=== PATIENT | female | born 1975 | race Caucasian/White ===

== ENCOUNTER 2018-12-08 11:58 | Inpatient (IN) | payer OTHER ==
[2018-12-07 08:31] VITALS: BMI 27.6
--- NOTE | 2018-12-08 09:14 | HP ---
History & Physical Update - History History: No Change (h&p reviwed , no changes for supracervical abdominal hysterectomy. bilateral salpingectomy) - Physical Physical: No Change - Assessment Assessment: No Change - Plan Plan: No Change
[2018-12-08 12:51] LABS: INR 1.04 (0.83-1.09); PROTHROMBIN TIME (PATIENT) 12.3 SEC (9.7-13.0)
[2018-12-08 12:54] LABS: ACTIVATED PTT 30.4 SECONDS (25.2-36.5)
[2018-12-08] MEDS ORDERED: ceFAZolin 2 GRAM PREMIX BAG IVPB ONE (13:00)
[2018-12-08] MEDS ORDERED: CEFAZOLIN 1 GM/D5W 2 GM/100 ML BAG ONE (13:03)
[2018-12-08] MEDS ORDERED: ceFAZolin SODIUM 1 GM VIAL ONE (13:04)
[2018-12-08] MEDS ORDERED: ROCURONIUM BROMIDE 50 MG/5 ML VIAL ONE (14:30)
[2018-12-08] MEDS ORDERED: PROPOFOL 20 ML ONE ×2 (14:30)
[2018-12-08] MEDS ORDERED: MIDAZOLAM HCL 2 MG/2 ML SINGLE DOSE VIAL ONE (14:30)
[2018-12-08] MEDS ORDERED: ceFAZolin SODIUM 1 GM VIAL IVPB ONE (14:52)
[2018-12-08] MEDS ORDERED: NEOSTIGMINE METHYLSULFATE 0.5 MG/ML - 10 ML MDV ONE (16:11)
[2018-12-08] MEDS ORDERED: GLYCOPYRROLATE 0.2 MG/1 ML VIAL ONE (16:11)
[2018-12-08] MEDS ORDERED: DEXAMETHASONE SOD PHOSPHATE 4 MG/1 ML VIAL IVPUSH PRN (16:20)
[2018-12-08] MEDS ORDERED: ONDANSETRON 4 MG/2 ML VIAL IVPUSH PRN ×2 (16:20→16:25)
[2018-12-08] MEDS ORDERED: PROMETHAZINE HCL 25 MG/1 ML VIAL IVPB PRN (16:20)
[2018-12-08] MEDS ORDERED: IBUPROFEN 800 MG/8 ML IJ IVPB PRN (16:25)
[2018-12-08] MEDS ORDERED: IBUPROFEN 600 MG TABLET (FP) PO PRN (16:25)
[2018-12-08] MEDS ORDERED: oxyCODONE HCL 5 MG TABLET PO PRN (16:25)
[2018-12-08] MEDS ORDERED: ACETAMINOPHEN 325 MG TABLET (FP) PO PRN (16:27)
[2018-12-08] MEDS ORDERED: HYDROmorphone *PCA* 10MG/50ML DISP.SYRIN PCA SCH (16:30)
[2018-12-08] MEDS ORDERED: HYDROmorphone *PCA* 10MG/50ML DISP.SYRIN PCA ONE (16:36)
[2018-12-08] MEDS ORDERED: PROMETHAZINE HCL 25 MG/1 ML VIAL ONE (16:50)
[2018-12-08] MEDS: ELECTROLYTE-148 SOLN 1,000 ML IV SCH (18:30)
[2018-12-09] MEDS: METOCLOPRAMIDE HCL INJECTION 10 MG/2 ML VIAL IVPB SCH ×3 (00:45→18:40)
[2018-12-09] MEDS: ELECTROLYTE-148 SOLN 1,000 ML IV SCH ×2 (04:00→18:39)
--- NOTE | 2018-12-09 07:29 | OP ---
DATE OF OPERATION: 12/08/2018 PREOPERATIVE DIAGNOSIS: Menometrorrhagia, pelvic pain, adenomyosis, not responding to hormonal therapy. POSTOPERATIVE DIAGNOSIS: Menometrorrhagia, pelvic pain, adenomyosis, not responding to hormonal therapy. PROCEDURE: Suprapubic abdominal hysteroscopy, bilateral salpingectomy. SURGEON: Emi Prince MD HOPPER FILLER: Richard Lopez MD ANESTHESIA: General, Dr. Serna. ESTIMATED BLOOD LOSS: 150 mL. DESCRIPTION OF PROCEDURE: The patient was taken to the operating room. Under adequate general anesthesia in dorsal supine position, abdomen and perineum was prepped and draped. Bowen catheter was inserted. Abdomen was prepped and cleaned then an incision was made over the previous section scar. A Pfannenstiel abdominal skin incision was made. Abdominal wall was cut layer by layer until peritoneum was exposed and incised. Upon entering the abdominal cavity, upper abdomen was checked. Bowels were packed away then uterus was delivered to the surface. Bladder was adherent to the lower uterine area, and over the cervix first the anterior leaf of broad ligament was opened. Bladder was pushed down. The round ligament was identified bilaterally, clamped with a LigaSure clamp, cauterized, and cut. Then a hole was made in the broad ligament and the upper uteroovarian and tubal pedicle were grasped with a Beti clamp, cauterized with a LigaSure cautery, and then a tie was placed at the uteroovarian ligament. Then the same thing was repeated for the opposite side. Both tubes were grasped with [place] clamp along the mesosalpinx and cauterized with a LigaSure cautery and the tubes were removed. Then bladder was further pushed down. Uterine artery was identified bilaterally, clamped with Beti clamp, cut, and the clamp replaced with 0 Vicryl suture bilaterally. At this time, the paracervical area was clamped with Beti clamp, cut, and the clamp replaced with 0 Vicryl suture bilaterally. Then the specimen was removed above the cervix and then cervix sutured with 1 Vicryl interrupted suture. Hemostasis was established. Pelvic cavity several times irrigated and no active bleeding was seen. Then both ureters were manually palpated, normal. Urine was clear. All the lap pad, sponge, and instrument counts were correct. Pelvic cavity several times irrigated and then the peritoneum was closed with 0 Vicryl continuous suture. Muscles were brought together with interrupted suture of 0 Vicryl. The fascia was closed with 0 Vicryl continuous suture, subcutaneous fat with interrupted suture of 0 Vicryl, and the skin was closed with 3-0 Vicryl subcuticular continuous suture. The patient tolerated the procedure well and left the OR in good condition. EMI PRINCE M.D. [id number]
[2018-12-09 08:25] LABS: HEMATOCRIT 36.7 % (32.4-45.2); HEMOGLOBIN 12.6 GM/dL (10.7-15.3); MCH 34.1 pg (25.7-33.7); MCHC 34.4 g/dl (32.0-36.0); MEAN CELL VOLUME 99.1 fl (80-96); PLATELET COUNT 141 K/MM3 (134-434); RDW 13.4 % (11.6-15.6); WHITE BLOOD COUNT 13.9 K/mm3 (4.0-10.0)
[2018-12-09] MEDS ORDERED: oxyCODONE HCL 5 MG TABLET PO PRN (08:38)
[2018-12-09] MEDS ORDERED: SIMETHICONE 80 MG TAB.CHEW (FP) PO PRN (08:39)
[2018-12-09] MEDS ORDERED: BISACODYL 5 MG TABLET.DR (FP) PO PRN (08:40)
--- NOTE | 2018-12-09 08:41 | PN ---
Progress Note (short form) - Note Progress Note: Anesthesia/Pain Pt seen and examined S:Alert and awake comfortable O: Vital Signs Temperature 98.8 F 12/09/18 06:00 Pulse Rate 67 12/09/18 06:00 Respiratory Rate 20 12/09/18 06:00 Blood Pressure 120/77 12/09/18 06:00 O2 Sat by Pulse Oximetry (%) 98 12/08/18 21:00 A/P: s/p Hysterectomy on NEURODIAGNOSTIC TECH Doing well post op Continue current care Sean Mayorga MD
[2018-12-09] MEDS ORDERED: PT OWN MED DRAWER 7, Y5N ONE ×2 (10:14→15:33)
[2018-12-09] MEDS: ENOXAPARIN NA (PORCINE) 40 MG/0.4 ML DISP.SYRIN SQ SCH (10:34)
--- NOTE | 2018-12-09 18:24 | PN ---
Progress Note (short form) - Note Progress Note: pod 1 . doing well, comfortable, passing gas CBC, BMP 12/09/18 06:50 Last Vital Signs Temp Pulse Resp BP Pulse Ox 98.8 F 81 20 119/77 98 12/09/18 16:20 12/09/18 16:20 12/09/18 16:20 12/09/18 16:20 12/08/18 21:00 abdomen soft, no distension, no cva , BS are present no vaginal bleeding pod 1, afebrile, doing well plan ambulate , advance diet DVT prophylaxis
[2018-12-10 08:45] LABS: ANION GAP 4 MMOL/L (8-16); BLOOD UREA NITROGEN 9 mg/dL (7-18); CALCIUM 7.8 mg/dL (8.5-10.1); CHLORIDE 105 mmol/L (98-107); CO2 28 mmol/L (21-32); CREATININE 0.5 mg/dL (0.55-1.3); GLUCOSE,RANDOM 110 mg/dL (74-106); POTASSIUM 3.6 mmol/L (3.5-5.1); SODIUM 137 mmol/L (136-145)
[2018-12-10] MEDS: ENOXAPARIN NA (PORCINE) 40 MG/0.4 ML DISP.SYRIN SQ SCH (11:34)
[2018-12-10 13:39] LABS: BASO % 0.2 % (0-2.0); HEMATOCRIT 36.5 % (32.4-45.2); HEMOGLOBIN 12.9 GM/dL (10.7-15.3); LYMPH % 14.5 % (8-40); MCHC 35.3 g/dl (32.0-36.0); MEAN CELL VOLUME 99.3 fl (80-96); MEAN PLT VOLUME 8.6 fl (7.5-11.1); MONO % 8.2 % (3.8-10.2); NEUT % 76.1 % (42.8-82.8); PLATELET COUNT 138 K/MM3 (134-434); RBC 3.67 M/mm3 (3.60-5.2); RDW 13.7 % (11.6-15.6); WHITE BLOOD COUNT 10.4 K/mm3 (4.0-10.0)
[2018-12-10] MEDS ORDERED: PT OWN MED DRAWER 7, Y5N ONE (15:45)
[2018-12-10] MEDS: ELECTROLYTE-148 SOLN 1,000 ML IV SCH (18:51)
[2018-12-11 09:19] LABS: BASO % 0.5 % (0-2.0); EOS % 1.6 % (0-4.5); HEMATOCRIT 37.2 % (32.4-45.2); HEMOGLOBIN 13.2 GM/dL (10.7-15.3); LYMPH % 13.2 % (8-40); MCH 35.3 pg (25.7-33.7); MCHC 35.5 g/dl (32.0-36.0); MEAN CELL VOLUME 99.2 fl (80-96); MEAN PLT VOLUME 8.2 fl (7.5-11.1); MONO % 6.9 % (3.8-10.2); NEUT % 77.8 % (42.8-82.8); PLATELET COUNT 145 K/MM3 (134-434); RBC 3.75 M/mm3 (3.60-5.2); WHITE BLOOD COUNT 9.6 K/mm3 (4.0-10.0)
[2018-12-11] MEDS: ENOXAPARIN NA (PORCINE) 40 MG/0.4 ML DISP.SYRIN SQ SCH (09:25)
[2018-12-11 09:55] LABS: ALBUMIN 3.2 g/dl (3.4-5.0); ALK PHOS 75 U/L (45-117); ANION GAP 8 MMOL/L (8-16); BLOOD UREA NITROGEN 9 mg/dL (7-18); CALCIUM 8.4 mg/dL (8.5-10.1); CHLORIDE 104 mmol/L (98-107); CO2 25 mmol/L (21-32); CREATININE 0.6 mg/dL (0.55-1.3); GLUCOSE,RANDOM 102 mg/dL (74-106); POTASSIUM 3.6 mmol/L (3.5-5.1); SGOT/AST 20 U/L (15-37); SGPT/ALT 13 U/L (13-61); SODIUM 137 mmol/L (136-145); TOT PROT 6.6 g/dl (6.4-8.2)
[2018-12-11 15:14] VITALS: BP 139/87; PULSE 83; TEMP 98.8
[2018-12-11] MEDS ORDERED: CEFTRIAXONE 1 GM in DEXTROSE 5%-WATER - 50 ML IVPB ONE (15:48)
--- NOTE | 2018-12-11 16:01 | PN ---
Progress Note (short form) - Note Progress Note: pod 3 no fever today , passing gas , had BM , has burning on urination CBC, BMP 12/11/18 09:05 12/11/18 09:05 Last Vital Signs Temp Pulse Resp BP Pulse Ox 98.8 F 83 18 139/87 97 12/11/18 15:12 12/11/18 15:12 12/11/18 15:12 12/11/18 15:12 12/11/18 09:00 abdomen soft, no distension, BS present incision clean , dry, healing well, no redness no calf tenderness urine gm neg,bacilli impression uti, will tx with ceftrioxone one dose. since no fever, nomal WBC will d/c home on po mcarobid pending senstinity instruction given if fever, pain difficulty with urination call
[2018-12-11] MEDS ORDERED: DEXTROSE 5%-WATER - 50 ML IVPB ONE (16:16)
[2018-12-11] MEDS ORDERED: cefTRIAXone SODIUM 1 GM VIAL ONE (16:16)
--- NOTE | 2018-12-12 11:17 | DS ---
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: Vital Signs Temperature 98.8 F 12/11/18 15:12 Pulse Rate 83 12/11/18 15:12 Respiratory Rate 18 12/11/18 15:12 Blood Pressure 139/87 12/11/18 15:12 O2 Sat by Pulse Oximetry (%) 97 12/11/18 09:00 Constitutional: Yes: Well Nourished, No Distress, Calm Eyes: Yes: WNL, Conjunctiva Clear, EOM Intact HENT: Yes: WNL, Atraumatic, Normocephalic Neck: Yes: WNL, Supple, Trachea Midline Cardiovascular: Yes: WNL, Regular Rate and Rhythm Respiratory: Yes: WNL, Regular, CTA Bilaterally Gastrointestinal: Yes: WNL ...Rectal Exam: Yes: WNL Renal/: Yes: WNL External Genitalia: Yes: Normal Breast(s): Yes: WNL Musculoskeletal: Yes: WNL Extremities: Yes: WNL Edema: No Integumentary: Yes: WNL Wound/Incision: Yes: Clean/Dry, Well Approximated, Sutures Intact Neurological: Yes: WNL, Alert, Oriented ...Motor Strength: WNL Psychiatric: Yes: WNL, Alert, Oriented Labs: CBC, BMP 12/11/18 09:05 12/11/18 09:05 Discharge Summary Reason For Visit: PELV & PERINEAL PAIN/ENDOMETRIOSIS/MENOMETRORRHAGI Procedures: Principal: supracervical abdominal hysterectomy, bilateral salpingectomy Hospital Course: had post op fever, urine culture positve for E coli, txed Condition: Unchanged/Unknown - Instructions Diet, Activity, Other Instructions: regular diet, follow up office 2 weeks, if pain, heavy vaginal bleeding, fever call no intercourse Referrals: Veto Myers MD [Staff Physician] - Disposition: HOME - Home Medications Comprehensive Discharge Medication List: Ambulatory Orders Mirabegron [Myrbetriq] 25 mg PO DAILY 12/07/18 Ocrevus 300 mg IV UTDICT 12/07/18 Ibuprofen [Motrin -] 600 mg PO TID #90 tablet 12/08/18 Nitrofurantoin Macrocrystal [Macrodantin] 100 mg PO BID #14 capsule 12/11/18
--- NOTE | 2018-12-13 17:06 | PATH ---
Surgical Pathology Report Patient Name: GRACE MAIN Med. Rec. #: [id number] /Age/Gender: 1975 (Age: 43) / F Account: [id number] Location: [facility] MED/SURG Taken: 12/08/2018 Received: 12/11/2018 Reported: 12/13/2018 Physicians: Veto Myers M.D. Specimen(s) Received UTERUS, CERVIX, BILATERAL FALLOPIAN TUBES Clinical History Pelvic and perineal pain Endometriosis, metromenorrhagia Final Diagnosis UTERUS, CERVIX, BILATERAL FALLOPIAN TUBES, SUPRACERVICAL HYSTERECTOMY AND BILATERAL SALPINGECTOMY: ADENOMYOSIS. SECRETORY TYPE ENDOMETRIUM. BILATERAL FALLOPIAN TUBES WITH ENDOSALPINGIOSIS AND PARATUBAL CYSTS. ENDOCERVICAL TISSUE AT CERVICAL STUMP WITH NO DIAGNOSTIC ABNORMALITIES. Electronically Signed Janay Navarrete M.D. Gross Description Received in formalin labeled "uterus, cervix, bilateral fallopian tubes," is a 139 g supracervically amputated uterus with no attached adnexa. The serosa is mcdaniel-tamayo and smooth. The specimen measures 8 cm from superior to inferior, 6.5 cm from left to right and 5.5 cm from anterior to posterior. The endometrial cavity measures 5 cm in length and 2 cm from cornu to cornu. The endometrium is mcdaniel-red and measures 0.2 cm in thickness. There are multiple small intramural nodules present, measuring up to 0.9 cm in greatest dimension. The cut surface of the nodules is mcdaniel and rubbery with whorled architecture. No areas of hemorrhage or necrosis are identified. The remaining myometrium is mcdaniel noonan and averages 2.5 cm in thickness. There are 2 undesignated, fimbriated fallopian tubes separately received within the same container. The fallopian tubes measure 4.5 and 5.0 cm in length. The outer surfaces are tamayo purple and smooth. Sectioning reveals unremarkable lumen. Preparation Center Coordinator sections are submitted in 11 cassettes as follows: 1-cervical stump margin of resection; 5-0-lnuierab endomyometrium; 3-1-sqkctopvg endomyometrium; 9-0-zslbxporni nodules; 8-shorter fallopian tube fimbria; 9-cross sections of shorter fallopian tube; 10-longer fallopian tube fimbria; 11-cross sections of longer fallopian tube. /12/12/2018 [facility]/12/12/2018
== END 2018-12-11 17:33 | disposition home or self-care (01) | DRG 743 ==
LOC: JSAMEDAYSX 11:58 → EDSTATUS 14:00 → J8W 19:55
PROVIDERS: ADMIT Obstetrics & Gynecology; ATTEND Obstetrics & Gynecology
PROC: 0UT70ZZ Resection of Bilateral Fallopian Tubes, Open Approach (ICD-10-PCS; 2018-12-08)
PROC: 0UT90ZZ Resection of Uterus, Open Approach (ICD-10-PCS; principal; 2018-12-08 14:00)
DX: N92.1 Excessive and frequent menstruation with irregular cycle (principal); N80.0 Endometriosis of uterus; R10.2 Pelvic and perineal pain
CPT/HCPCS: 36415; 71046-TC-FY; 80048; 80053; 84702; 85025; 85027; 85610; 85730; 86850; 86900; 86901; 87040; 87086; 87186; 88307-TC; 94010; 94760

== ENCOUNTER 2019-07-27 06:17 | Day surgery (SDC) | payer OTHER ==
[2019-07-26 14:33] VITALS: BMI 26.5
[2019-07-27] MEDS ORDERED: ONDANSETRON 4 MG/2 ML VIAL IVPUSH PRN (07:57)
[2019-07-27] MEDS ORDERED: ONABOTULINUMTOXINA 200 UNIT/VIAL VIAL NR ONE (08:00)
[2019-07-27] MEDS ORDERED: LACTATED RINGERS SOLUTION 1,000 ML IV SCH (08:00)
[2019-07-27] MEDS ORDERED: MIDAZOLAM HCL 2 MG/2 ML SINGLE DOSE VIAL ONE (08:14)
[2019-07-27] MEDS ORDERED: PROPOFOL 20 ML ONE (08:15)
[2019-07-27] MEDS ORDERED: ROCURONIUM BROMIDE 50 MG/5 ML SYRINGE ONE (08:15)
[2019-07-27] MEDS ORDERED: ceFAZolin SODIUM 1 GM VIAL IVPB ONE (08:20)
--- NOTE | 2019-07-27 08:44 | OP ---
Operative Note - Note: Operative Date: 07/27/19 Pre-Operative Diagnosis: oab Operation: cysto and botox injection Findings: trabeculated bladder Post-Operative Diagnosis: Same as Pre-op Surgeon: Tessa Seay Anesthesia: General Specimens Removed: urine Estimated Blood Loss (mls): 0 Drains, Volume Out (mls): 0 Blood Volume Replaced (mls): 0 Fluid Volume Replaced (mls): 0 Operative Report Dictated: Yes
--- NOTE | 2019-07-27 09:19 | CONS ---
DATE OF CONSULTATION: DATE OF DICTATION: 07/27/2019 HISTORY OF PRESENT ILLNESS: Patient is a 43-year-old female with history of multiple sclerosis, neurogenic bladder, and overactive bladder. Patient has failed multiple medications including Myrbetriq and Ditropan. She complains of nocturia, urgency, frequency, hesitancy, and urgency incontinence. ALLERGIES: She is allergic to DEMEROL. OBSTETRICAL HISTORY: She is G2, P2. PHYSICAL EXAMINATION: General: Physical exam revealed a well-developed adult female. Abdomen: Soft. There was no CVA tenderness. Pelvic: Revealed a grade 1 cystorectocele. Bladder was not distended. Postvoid residual is zero. IMPRESSION: Overactive bladder resistant to medical management. PLAN: Bladder denervation with Botox injections. TU BARNARD M.D. [id number]
--- NOTE | 2019-07-27 09:22 | OP ---
DATE OF OPERATION: 07/27/2019 PREOPERATIVE DIAGNOSIS: Overactive bladder. POSTOPERATIVE DIAGNOSIS: Overactive bladder. OPERATIVE PROCEDURE: Cystourethroscopy and injection of Botox into bladder. Under the above-stated anesthesia, patient is prepped and draped in the usual sterile manner. She is placed in the dorsal lithotomy position. Cystoscopy revealed 80 mL of residual urine. This was sent to pathology. Inspection of the bladder revealed a grade 2 trabeculation throughout. Ureteral orifices were within normal limits with efflux of clear urine. Next, 200 units of Botox were mixed with 20 mL of normal saline. Five rows of 5 injections each were placed above the interureteric ridge. No active bleeding was noted. The bladder was emptied. Scope was removed. Patient tolerated the procedure well. She returned to the recovery room in good condition. Jaswinder [id number]
[2019-07-27 10:19] VITALS: TEMP 97.8
--- NOTE | 2019-07-27 11:30 | OP ---
DATE OF OPERATION: 07/27/2019 PREOPERATIVE DIAGNOSIS: Overactive bladder. POSTOPERATIVE DIAGNOSIS: Overactive bladder. OPERATIVE PROCEDURE: Cystourethroscopy, injection of Botox in bladder. ANESTHESIA: General. DESCRIPTION OF PROCEDURE: Under above stated anesthesia, patient is prepped and draped in the usual and sterile manner. She is placed in the dorsal lithotomy position. External genitalia appeared to reveal a grade 1 cystorectocele. No lesions were seen. Cystoscopy revealed squamous metaplasia of the trigone. Ureteral orifices were within normal limits. No lesions or calculi were seen. 200 units of Botox were mixed with 20 mL of normal saline. 5 injections 1 cm above the interureteric ridge was carried out from the right to the left side 4 rows in total were performed. No active bleeding was noted. The bladder was emptied. The scope was removed. The patient tolerated the procedure well. She returned to the recovery room in good condition. Jaswinder [id number]
[2019-07-27 16:10] VITALS: BP 144/90; PULSE 60
--- NOTE | 2019-07-30 16:56 | PATH ---
Cytology Non-Gynecological Report Patient Name: GRACE MAIN Med. Rec. #: [id number] /Age/Gender: 1975 (Age: 44) / F Account: [id number] Location: [facility] Taken: 07/27/2019 Received: 07/27/2019 Reported: 07/30/2019 Physicians: Tessa Seay M.D. Specimen(s) Received URINE Clinical History Urine for cytology Final Diagnosis URINE FOR CYTOLOGY: SATISFACTORY FOR EVALUATION. NEGATIVE FOR HIGH GRADE UROTHELIAL CARCINOMA. UROTHELIAL CELLS AND SCATTERED SQUAMOUS EPITHELIAL CELLS PRESENT. Electronically Signed Chikis Jean Baptiste M.D. Gross Description Two jars of approximately 45 cc of yellow fluid received fresh. Two cytofunnels prepared and Pap stained.
== END 2019-07-27 11:00 | disposition home or self-care (01) ==
LOC: JASU-SURG 06:17
PROVIDERS: ATTEND Urology
PROC: 3E0K8GC Introduction of Other Therapeutic Substance into Genitourinary Tract, Via Natural or Artificial Opening Endoscopic (ICD-10-PCS; principal; 2019-07-27 08:00)
DX: N32.81 Overactive bladder (principal)
CPT/HCPCS: 88108; 94760; J0585

== ENCOUNTER 2021-03-20 03:59 | Inpatient (IN) | payer OTHER ==
[2021-03-20] MEDS ORDERED: MECLIZINE HCL 25 MG TABLET (FP) PO ONE (04:42)
[2021-03-20] MEDS ORDERED: MECLIZINE HCL 25 MG TABLET (FP) ONE (04:56)
[2021-03-20 05:56] LABS: CALCIUM 9.1 mg/dL (8.5-10.1)
[2021-03-20 05:57] LABS: ALBUMIN 3.5 g/dl (3.4-5.0); BLOOD UREA NITROGEN 14.6 mg/dL (7-18)
[2021-03-20 06:00] LABS: CREATININE 0.7 mg/dL (0.55-1.3)
[2021-03-20 06:02] LABS: BILIRUBIN,TOTAL 0.7 mg/dL (0.2-1)
[2021-03-20 06:39] LABS: BASO % 0.3 % (0-2.0); EOS % 0.6 % (0-4.5); HEMATOCRIT 39.6 % (32.4-45.2); HEMOGLOBIN 13.6 GM/dL (10.7-15.3); LYMPH % 14.4 % (8-40); MCH 34.1 pg (25.7-33.7); MCHC 34.4 g/dl (32.0-36.0); MEAN PLT VOLUME 9.2 fl (7.5-11.1); MONO % 8.8 % (3.8-10.2); NEUT % 75.9 % (42.8-82.8); PLATELET COUNT 153 K/MM3 (134-434); RDW 12.7 % (11.6-15.6); WHITE BLOOD COUNT 7.9 K/mm3 (4.0-10.0)
[2021-03-20] MEDS ORDERED: methylPREDNISolone NA SUCC 125 MG/2 ML VIAL IVPB ONE (07:05)
[2021-03-20] MEDS ORDERED: methylPREDNISolone NA SUCC 125 MG/2 ML VIAL ONE (07:51)
[2021-03-20] MEDS ORDERED: ACETAMINOPHEN 1000 MG/100 ML VIAL (NON FORMULARY) IVPB ONE (08:26)
[2021-03-20 08:45] LABS: EPI CELLS >36 /uL (0-25.1); HYALINE CASTS 2 /uL (0-3.1); PH,URINE 6.5 (5.0-8.0); URINE APPEARANCE CLOUDY; URINE BACTERIA >9,000 /uL (0-1359); URINE BILIRUBIN NEGATIVE (NEGATIVE); URINE COLOR YELLOW; URINE GLUCOSE (UA) NEGATIVE (NEGATIVE); URINE KETONE TRACE (NEGATIVE); URINE LEUK ESTERASE 1+ (NEGATIVE); URINE NITRITE POSITIVE (NEGATIVE); URINE PROTEIN TRACE (NEGATIVE); URINE RBC 8 /uL (0-23.9); URINE WBC 49 /uL (0-25.8)
[2021-03-20] MEDS ORDERED: CEFTRIAXONE 1 GM in DEXTROSE 5%-WATER - 100 ML IVPB ONE (08:55)
[2021-03-20] MEDS ORDERED: ACETAMINOPHEN INJECTION 100 ML IVPB ONE (09:31)
[2021-03-20] MEDS ORDERED: CEFTRIAXONE 1 GM/50 ML BAG ONE (09:32)
[2021-03-20 09:42] LABS: URINE CRYSTALS NON SEEN /hpf
[2021-03-20] MEDS ORDERED: methylPREDNISolone NA SUCC 1000 MG/8 ML VIAL IVPB ONE (11:31)
[2021-03-20] MEDS ORDERED: methylPREDNISolone NA SUCC 1000 MG/8 ML VIAL IVPUSH ONE (11:34)
[2021-03-20] MEDS ORDERED: methylPREDNISolone NA SUCC 1000 MG/8 ML VIAL ONE (12:10)
[2021-03-20 16:39] VITALS: BMI 28.3
[2021-03-21] MEDS ORDERED: PT OWN MED DRAWER 7, Y5N ONE (09:03)
[2021-03-21] MEDS ORDERED: cefTRIAXone SODIUM 1 GM VIAL ONE (09:04)
[2021-03-21] MEDS ORDERED: DEXTROSE 5%-WATER - 50 ML IVPB ONE (09:04)
[2021-03-21 09:15] LABS: HEMATOCRIT 40.5 % (32.4-45.2); HEMOGLOBIN 13.7 GM/dL (10.7-15.3); MCH 33.6 pg (25.7-33.7); MCHC 33.7 g/dl (32.0-36.0); MEAN CELL VOLUME 99.6 fl (80-96); MEAN PLT VOLUME 9.2 fl (7.5-11.1); PLATELET COUNT 170 K/MM3 (134-434); RBC 4.06 M/mm3 (3.60-5.2); RDW 12.8 % (11.6-15.6); WHITE BLOOD COUNT 18.2 K/mm3 (4.0-10.0)
[2021-03-21] MEDS: ENOXAPARIN NA (PORCINE) 40 MG/0.4 ML DISP.SYRIN SQ SCH (09:36)
[2021-03-21 09:37] LABS: BLOOD UREA NITROGEN 15.9 mg/dL (7-18); CALCIUM 9.4 mg/dL (8.5-10.1); MAGNESIUM 2.2 mg/dL (1.8-2.4)
[2021-03-21] MEDS: CEFTRIAXONE 1 GM in DEXTROSE 5%-WATER - 50 ML IVPB SCH (09:37)
[2021-03-21 09:40] LABS: CREATININE 0.6 mg/dL (0.55-1.3); PHOSPHOROUS 3.2 mg/dL (2.5-4.9)
[2021-03-21] MEDS: methylPREDNISolone NA SUCC 1000 MG/8 ML VIAL IVPB SCH (10:18)
[2021-03-22 07:58] LABS: HEMATOCRIT 37.4 % (32.4-45.2); HEMOGLOBIN 12.7 GM/dL (10.7-15.3); LYMPH % 3.7 % (8-40); MCH 33.6 pg (25.7-33.7); MCHC 34.1 g/dl (32.0-36.0); MEAN CELL VOLUME 98.6 fl (80-96); MEAN PLT VOLUME 9.2 fl (7.5-11.1); MONO % 4.2 % (3.8-10.2); NEUT % 92.1 % (42.8-82.8); PLATELET COUNT 158 K/MM3 (134-434); RBC 3.79 M/mm3 (3.60-5.2); RDW 12.7 % (11.6-15.6); WHITE BLOOD COUNT 21.1 K/mm3 (4.0-10.0)
[2021-03-22 08:45] LABS: ALBUMIN 3.2 g/dl (3.4-5.0); CALCIUM 8.8 mg/dL (8.5-10.1)
[2021-03-22 08:47] LABS: MAGNESIUM 2.2 mg/dL (1.8-2.4)
[2021-03-22 08:49] LABS: CREATININE 0.6 mg/dL (0.55-1.3); PHOSPHOROUS 3.6 mg/dL (2.5-4.9)
[2021-03-22 08:51] LABS: BILIRUBIN,TOTAL 0.4 mg/dL (0.2-1); TOT PROT 6.3 g/dl (6.4-8.2)
[2021-03-22] MEDS ORDERED: cefTRIAXone SODIUM 1 GM VIAL ONE (09:38)
[2021-03-22] MEDS ORDERED: PT OWN MED DRAWER 7, Y5N ONE (09:38)
[2021-03-22] MEDS ORDERED: DEXTROSE 5%-WATER - 50 ML IVPB ONE (09:38)
[2021-03-22] MEDS: methylPREDNISolone NA SUCC 1000 MG/8 ML VIAL IVPB SCH (10:27)
[2021-03-22] MEDS: CEFTRIAXONE 1 GM in DEXTROSE 5%-WATER - 50 ML IVPB SCH (10:27)
[2021-03-22] MEDS: ENOXAPARIN NA (PORCINE) 40 MG/0.4 ML DISP.SYRIN SQ SCH (10:27)
[2021-03-22 10:42] LABS: ANISOCYTOSIS 1+; MACROCYTOSIS 0; PLATELET ESTIMATE DECREASED
[2021-03-22 14:07] VITALS: BP 133/90; PULSE 71; TEMP 98.2
== END 2021-03-22 17:22 | disposition home or self-care (01) | DRG 59 ==
LOC: JER 03:59 → JERBED 07:45 → J6S 14:11
PROVIDERS: ADMIT Student in an Organized Health Care Education/Training Program; ATTEND Internal Medicine
DX: G35 Multiple sclerosis (principal); N39.0 Urinary tract infection, site not specified; R42 Dizziness and giddiness; B96.20 Unspecified Escherichia coli [E. coli] as the cause of diseases classified elsewhere; E87.5 Hyperkalemia
CPT/HCPCS: 36415; 70450-TC; 70551-TC; 71045-TC-FY; 72141-TC; 72146-TC; 72148-TC; 76856-TC; 80048; 80053; 81003; 83735; 84100; 84443; 84703; 85025; 85027; 87086; 87186; 97116-GP; 97162-GP; 99285-25; C9803; J0131; U0003; U0005

== ENCOUNTER 2022-12-28 04:21 | Inpatient (IN) | payer OTHER ==
[2022-12-28] MEDS ORDERED: ONDANSETRON 4 MG/2 ML VIAL IVPUSH ONE (05:21)
[2022-12-28] MEDS ORDERED: FAMOTIDINE 20 MG/50 ML IVPB 20 MG/50 ML MG IVPB ONE ×2 (05:25→05:33)
[2022-12-28] MEDS ORDERED: SODIUM CHLORIDE 0.9% 500 ML INFUS.BAG IV ONE (05:25)
[2022-12-28] MEDS ORDERED: ONDANSETRON 4 MG/2 ML VIAL ONE (05:32)
[2022-12-28 06:57] LABS: BASO % 0.3 % (0-2.0); HEMATOCRIT 39.5 % (32.4-45.2); HEMOGLOBIN 13.7 GM/dL (10.7-15.3); LYMPH % 4.6 % (8-40); MCH 32.9 pg (25.7-33.7); MCHC 34.7 g/dl (32.0-36.0); MEAN CELL VOLUME 94.8 fl (80-96); MEAN PLT VOLUME 8.9 fl (7.5-11.1); MONO % 5.5 % (3.8-10.2); NEUT % 89.6 % (42.8-82.8); PLATELET COUNT 154 10^3/uL (134-434); RBC 4.16 M/mm3 (3.60-5.2); RDW 13.1 % (11.6-15.6); WHITE BLOOD COUNT 14.9 K/mm3 (4.0-10.0)
[2022-12-28 07:03] LABS: ALBUMIN 3.8 g/dl (3.4-5.0); CALCIUM 9.1 mg/dL (8.5-10.1)
[2022-12-28 07:06] LABS: CREATININE 0.8 mg/dL (0.55-1.3)
[2022-12-28 07:08] LABS: TOT PROT 7.4 g/dl (6.4-8.2)
[2022-12-28] MEDS ORDERED: ACETAMINOPHEN 1000 MG/100 ML BAG IVPB ONE (07:32)
[2022-12-28] MEDS ORDERED: ACETAMINOPHEN INJECTION 100 ML IVPB ONE (07:36)
[2022-12-28 08:14] LABS: EPI CELLS 21 /uL (0-25.1); HYALINE CASTS 2 /uL (0-3.1); PH,URINE 6.5 (5.0-8.0); URINE APPEARANCE CLEAR; URINE BACTERIA 4153 /uL (0-1359); URINE BILIRUBIN NEGATIVE (NEGATIVE); URINE COLOR YELLOW; URINE GLUCOSE (UA) NEGATIVE (NEGATIVE); URINE KETONE NEGATIVE (NEGATIVE); URINE LEUK ESTERASE NEGATIVE (NEGATIVE); URINE NITRITE POSITIVE (NEGATIVE); URINE PROTEIN NEGATIVE (NEGATIVE); URINE RBC 9 /uL (0-23.9); URINE UROBILINOGEN 0.2 mg/dL (0.2-1.0); URINE WBC 17 /uL (0-25.8)
[2022-12-28] MEDS ORDERED: methylPREDNISolone NA SUCC 1000 MG/8 ML VIAL IVPB ONE ×2 (08:21→10:45)
[2022-12-28] MEDS ORDERED: CEFTRIAXONE 1,000 MG in DEXTROSE 5%-WATER - 50 ML IVPB ONE (08:21)
[2022-12-28] MEDS ORDERED: methylPREDNISolone NA SUCC 1000 MG/8 ML VIAL ONE (08:47)
[2022-12-28] MEDS ORDERED: CEFTRIAXONE 1 GM/50 ML BAG ONE (08:47)
[2022-12-28] MEDS ORDERED: methylPREDNISolone NA SUCC 1000 MG/8 ML VIAL IVPB SCH (10:30)
[2022-12-28 14:46] LABS: URINE CRYSTALS NONE SEEN /hpf; YEAST NONE SEEN (NEGATIVE)
[2022-12-29 01:23] VITALS: BMI 33.5
[2022-12-29 09:57] LABS: HEMATOCRIT 37.2 % (32.4-45.2); HEMOGLOBIN 12.7 GM/dL (10.7-15.3); MCH 32.2 pg (25.7-33.7); MEAN CELL VOLUME 94.8 fl (80-96); MEAN PLT VOLUME 8.8 fl (7.5-11.1); PLATELET COUNT 157 10^3/uL (134-434); RBC 3.92 M/mm3 (3.60-5.2); RDW 13.1 % (11.6-15.6); WHITE BLOOD COUNT 19.5 K/mm3 (4.0-10.0)
[2022-12-29 10:18] LABS: CALCIUM 8.8 mg/dL (8.5-10.1)
[2022-12-29] MEDS: CEFTRIAXONE 1 GM in DEXTROSE 5%-WATER - 50 ML IVPB SCH (10:18)
[2022-12-29 10:19] LABS: ALBUMIN 3.2 g/dl (3.4-5.0); BLOOD UREA NITROGEN 15.7 mg/dL (7-18)
[2022-12-29] MEDS: ACETAMINOPHEN 325 MG TABLET (FP) PO PRN (10:19)
[2022-12-29] MEDS: PANTOPRAZOLE SODIUM 40 MG VIAL IVPUSH SCH (10:19)
[2022-12-29] MEDS: ENOXAPARIN NA (PORCINE) 40 MG/0.4 ML DISP.SYRIN SQ SCH (10:19)
[2022-12-29] MEDS: methylPREDNISolone NA SUCC 1000 MG/8 ML VIAL IVPB SCH (10:19)
[2022-12-29 10:22] LABS: CREATININE 0.6 mg/dL (0.55-1.3)
[2022-12-29 10:24] LABS: BILIRUBIN,TOTAL 0.4 mg/dL (0.2-1); TOT PROT 6.6 g/dl (6.4-8.2)
[2022-12-29 10:47] LABS: ERYTHROCYTE SEDIMENTATION RATE 32 mm/hr (0-20)
[2022-12-29 11:18] LABS: ANISOCYTOSIS 0; HELMET CELLS 0; HOWELL-JOLLY BODIES 0; MACROCYTOSIS 0; OVALOCYTE 0; ROULEAU 0; SICKELED CELLS 0; TARGET CELLS 0; TEAR DROP CELLS 0; TOXIC GRANULATION 0
[2022-12-29] MEDS ORDERED: POTASSIUM CHLORIDE ORAL LIQUID 20 MEQ/15 ML PO ONE (12:15)
[2022-12-30 09:04] LABS: CALCIUM 8.4 mg/dL (8.5-10.1)
[2022-12-30 09:05] LABS: BLOOD UREA NITROGEN 19.4 mg/dL (7-18)
[2022-12-30 09:08] LABS: CREATININE 0.6 mg/dL (0.55-1.3)
[2022-12-30] MEDS: CEFTRIAXONE 1 GM in DEXTROSE 5%-WATER - 50 ML IVPB SCH (10:14)
[2022-12-30] MEDS: ENOXAPARIN NA (PORCINE) 40 MG/0.4 ML DISP.SYRIN SQ SCH (10:14)
[2022-12-30] MEDS: methylPREDNISolone NA SUCC 1000 MG/8 ML VIAL IVPB SCH (10:14)
[2022-12-30] MEDS: PANTOPRAZOLE SODIUM 40 MG VIAL IVPUSH SCH (10:14)
[2022-12-30] MEDS: ACETAMINOPHEN 325 MG TABLET (FP) PO PRN (11:18)
[2022-12-30] MEDS ORDERED: diazePAM 5 MG TABLET PO ONE ×2 (12:53→19:00)
[2022-12-30] MEDS: MELATONIN 5 MG TABLETS PO SCH (22:00)
[2022-12-31 06:40] VITALS: RESP 18
[2022-12-31] MEDS: CEFTRIAXONE 1 GM in DEXTROSE 5%-WATER - 50 ML IVPB SCH (09:47)
[2022-12-31] MEDS: PANTOPRAZOLE SODIUM 40 MG VIAL IVPUSH SCH (09:48)
[2022-12-31] MEDS: ENOXAPARIN NA (PORCINE) 40 MG/0.4 ML DISP.SYRIN SQ SCH (09:48)
[2022-12-31] MEDS: ACETAMINOPHEN 325 MG TABLET (FP) PO PRN (15:23)
[2022-12-31] MEDS ORDERED: methylPREDNISolone NA SUCC 1000 MG/8 ML VIAL IVPB ONE (17:00)
[2022-12-31] MEDS: MELATONIN 5 MG TABLETS PO SCH (21:51)
[2023-01-01] MEDS: PANTOPRAZOLE SODIUM 40 MG VIAL IVPUSH SCH (10:09)
[2023-01-01] MEDS: ENOXAPARIN NA (PORCINE) 40 MG/0.4 ML DISP.SYRIN SQ SCH (10:09)
[2023-01-01] MEDS: CEFTRIAXONE 1 GM in DEXTROSE 5%-WATER - 50 ML IVPB SCH (10:10)
[2023-01-01 20:09] VITALS: BP 144/93; PULSE 57; TEMP 97.4
== END 2023-01-01 12:54 | disposition home or self-care (01) | DRG 43 ==
LOC: JER 04:21 → JERBED 09:17 → J5S 12-29 00:17
PROVIDERS: ADMIT Internal Medicine; ATTEND Internal Medicine
DX: G35 Multiple sclerosis (principal); N39.0 Urinary tract infection, site not specified; R26.2 Difficulty in walking, not elsewhere classified; Z91.14 Patient's other noncompliance with medication regimen
CPT/HCPCS: 0241U-QW; 36415; 71045-TC-FY; 72141-TC; 72146-TC; 72148-TC; 80048; 80053; 81003; 83690; 84703; 85025; 85651; 86140; 87086; 87186; 93005; 93010; 93970-TC; 97116-GP; 97162-GP; 99285-25